=== PATIENT | female | born 1985 | race African-American/Black ===

== ENCOUNTER 2023-10-01 17:58 | Emergency (ER) | payer BC, SELFPAY ==
[2023-10-01 18:16] VITALS: BP 144/73; PULSE 95; RESP 22; TEMP 36.8; O2SAT 99
[2023-10-01 18:25] VITALS: O2SAT 99
[2023-10-01] MEDS: dexAMETHasone SOD PHOS INJ 10 MG/ML 1 ML VIAL 12 MG IM (18:42)
[2023-10-01] MEDS: ALBUTEROL SULFATE NEB 2.5 MG/3 ML INH INHALATION (18:43)
[2023-10-01] MEDS: IPRATROPIUM BR 0.02% INH SOLN 0.5 MG/2.5 ML VIAL INHALATION (18:43)
[2023-10-01 18:59] VITALS: PULSE 103; RESP 24; O2SAT 97
[2023-10-01 19:01] VITALS: PULSE 103; RESP 24; O2SAT 97
--- NOTE | 2023-10-01 19:05 | ED.ASTHMA ---
HPI - Asthma General Chief Complaint: Asthma Stated Complaint: asthma issues,SOB Time Seen by Provider: 10/01/23 18:35 Source: patient and RN notes reviewed Mode of arrival: ambulatory Limitations: no limitations History of Present Illness HPI Narrative: Patient presents today complaining of a a 2 day history of worsening chronic cough due to her asthma. States she developed a severe chronic cough after moving to the area approximately 1 year ago. She has not yet initiated care with a PCP, but occasionally does see one approximately 4 hours away from here. She does have an appointment in November. She has been seen at another urgent care in the area and has prescribed her Breo and albuterol nebulizer treatments and albuterol inhaler, which she has been using. She has recently run out of her [employer] and has not purchased anymore. Last night she was coughing enough to vomit. She has also tried Delsym and Robitussin without relief of her cough. Related Data Home Medications Medication Instructions Recorded Confirmed albuterol sulfate 90 mcg/actuation 2 puff inhalation QID PRN Wheezing 10/01/23 10/01/23 aerosol inhaler fluticasone furoate 200 1 inh inhalation DIRECTED 10/01/23 10/01/23 mcg-vilanterol 25 mcg/dose inhalation powder (Breo Ellipta) Allergies Allergy/AdvReac Type Severity Reaction Status Date / Time No Known Allergies Allergy Verified 10/01/23 18:31 Review of Systems Review of Systems: CONSTITUTIONAL: Denies body aches, fever, chills, or sweats. EYES: Denies visual changes, redness, or discharge. ENT: Denies rhinorrhea, congestion, sore throat, or otalgia. CARDIOVASCULAR: Denies chest pain, palpitations, or edema. RESPIRATORY: Cough, wheezing GASTROINTESTINAL: Denies abdominal pain, nausea, or diarrhea.+ post-tussive vomiting GENITOURINARY: Denies dysuria or hematuria. SKIN: Denies rash, itching, or wounds. MUSCULOSKELETAL: Denies back pain, joint pain, or myalgia. NEUROLOGIC: Denies headache, numbness, tingling, or weakness. PSYCH: Denies depression or anxiety. [facility] Past Medical History Medical History (Updated 10/01/23 @ 19:31 by Ani Chiu, RESEARCH AND EVALUATION MANAGER, ) Asthma Comments At time of signature, I have reviewed and agree with nursing past medical, surgical, social and family history unless otherwise noted. Please see nursing chart for further information. There is no relevant family history pertinent to the presenting complaint Exam Narrative: GENERAL: Well-appearing, well-nourished HEAD: Normocephalic, atraumatic. EYES: EOMI. No redness or drainage. Conjunctivae normal. ENT: Mucous membranes pink and moist. Nares clear. No rhinorrhea. NECK: Normal AROM. Supple. No lymphadenopathy. CHEST: Frequent high-pitched cough. Somewhat decreased aeration, but otherwise clear. Posttussive vomiting. HEART: Regular rate and rhythm. No murmur appreciated. EXTREMITIES: Normal range of motion. No edema. SKIN: Warm, dry, no rash. Capillary refill normal. Normal skin turgor. NEURO: No focal deficits. Alert and oriented x3. Gait steady. PSYCH: Normal affect. No signs of depression or anxiety. Course Course Level of Care: Express Care Visit Vital Signs Vital signs: Vital Signs Temperature 98.3 F 10/01/23 18:16 Pulse Rate 95 10/01/23 18:16 Respiratory Rate 22 H 10/01/23 18:16 Blood Pressure 144/73 H 10/01/23 18:16 Pulse Oximetry 99 10/01/23 18:16 Oxygen Delivery Room Air 10/01/23 18:16 Temperature 98.3 F 10/01/23 18:16 Pulse Rate 93 10/01/23 19:13 Respiratory Rate 20 10/01/23 19:13 Blood Pressure 144/73 H 10/01/23 18:16 Pulse Oximetry 98 10/01/23 19:13 Oxygen Delivery Room Air 10/01/23 19:13 Reviewed MDM - Asthma MDM Narrative Medical decision making narrative: Feeling mildly better after Duoneb. Dexamethasone injection given as well. Refilled Breo. Prescriptions for prednisone and Cheratussin sent. Recommend resta
[2023-10-01 19:13] VITALS: PULSE 93; RESP 20; O2SAT 98
== END 2023-10-01 19:15 | disposition home or self-care (01) ==
PROVIDERS: Emergency Provider Nurse Practitioner
DX: J45.901 Unspecified asthma with (acute) exacerbation (principal)
CPT/HCPCS: 94640; 96372; 99203; G0463; J1100

== ENCOUNTER 2024-03-11 22:04 | Emergency (ER) | payer BC, SELFPAY ==
--- NOTE | ~2024-03-11 | XR_ITS ---
EXAMINATION: XR chest 1V portable DATE: 03/11/2024 22:57 INDICATION: Cough. TECHNIQUE: A single frontal view of the chest was obtained. COMPARISON: None. FINDINGS: There is no pneumonia, pleural effusion, or pneumothorax. Cardiomegaly is noted. Calcified left hilar lymph nodes are consistent with old granulomatous disease. IMPRESSION: 1. Cardiomegaly. Reviewed, dictated and finalized at location A. T MET[employer] SHOP SUPERVISOR IMPRESSION: 1. Cardiomegaly.
[2024-03-11 22:09] VITALS: BP 146/109; PULSE 85; RESP 18; TEMP 37.3; O2SAT 97
[2024-03-11] MEDS: ONDANSETRON HCL ODT 4 MG TABLET PO (22:33)
[2024-03-11] MEDS: ACETAMINOPHEN 500 MG TABLET 1000 MG PO (22:33)
--- NOTE | 2024-03-11 22:53 | ED_ITS ---
HPI - URI/Sore Throat General Chief Complaint: Upper Respiratory Infection Stated Complaint: cough, sore throat, vomiting Time Seen by Provider: 03/11/24 22:22 Source: patient Mode of arrival: ambulatory Limitations: no limitations History of Present Illness HPI Narrative: This is a 39 year old female that presents to the ER for cold symptoms. Present over the last 4 days. Reports cough, congestion, rhinorrhea, sore throat, vomiting. Denies fevers. Related Data Home Medications ?Medication ?Instructions ?Recorded ?Confirmed ?Last Taken ?Type albuterol sulfate 90 mcg/actuation 2 puff inhalation QID PRN Wheezing 10/01/23 10/01/23 Unknown History aerosol inhaler fluticasone furoate 200 1 inh inhalation DIRECTED 10/01/23 10/01/23 Unknown History mcg-vilanterol 25 mcg/dose inhalation powder (Breo Ellipta) Allergies Allergy/AdvReac Type Severity Reaction Status Date / Time No Known Allergies Allergy Verified 03/11/24 22:05 Review of Systems Review of Systems: CONSTITUTIONAL: Denies fever ENT: Reports rhinorrhea, congestion, sore throat RESPIRATORY: Reports cough. Denies dyspnea. GASTROINTESTINAL: Reports vomiting All systems reviewed & are unremarkable except as noted in HPI and below PMFSH Past Medical History Medical History (Updated 03/11/24 @ 23:23 by Jenny Rodriguez PA-C) Asthma Social History Social History (Updated 03/11/24 @ 22:55 by Jenny Rodriguez PA-C) Smoking status: Never smoker Exam Narrative: GENERAL: Well-appearing, well-nourished, and in no acute distress. HEAD: Normocephalic, atraumatic. EYES: EOMI. ENT: Nares clear, no rhinorrhea or epistaxis. Mucous membranes moist. Oropharynx without tonsillar hypertrophy exudate or other lesions. Bilateral TMs pearly gutierrez non-bulging NECK: Supple. No adenopathy or masses. CHEST: Clear to auscultation. No respiratory distress. No wheezes rales or rhonchi HEART: Regular rate and rhythm. No murmur heard. Normal peripheral pulses. EXTREMITIES: Normal range of motion. No edema. SKIN: Warm, dry, no rash. NEURO: No focal deficits. Alert and oriented x3. PSYCH: Normal mood and affect Course Course Emergency Course: patient updated on workup and agrees with plan of care Vital Signs Vital signs: Vital Signs Temperature 99.2 F 03/11/24 22:09 Pulse Rate 85 03/11/24 22:09 Respiratory Rate 18 03/11/24 22:09 Blood Pressure 146/109 H 03/11/24 22:09 Pulse Oximetry 97 03/11/24 22:09 Oxygen Delivery Room Air 03/11/24 22:09 Temperature 99.2 F 03/11/24 22:09 Pulse Rate 85 03/11/24 22:09 Respiratory Rate 18 03/11/24 22:09 Blood Pressure 146/109 H 03/11/24 22:09 Pulse Oximetry 97 03/11/24 22:09 Oxygen Delivery Room Air 03/11/24 22:09 MDM - URI/Sore Throat MDM Narrative Medical decision making narrative: Patient presents to the ER for cold symptoms present over the last 4 days. She is afebrile and nontoxic appearing. Oxygen saturation is normal on room air. Lungs are clear on exam. Chest x-ray without signs of pneumonia. Patient is influenza A positive. Updated on her workup. Agrees with plan of care. She is to follow up with PCP. She was given warnings to return to the ER Differential Diagnosis Differential diagnosis: Likely upper respiratory infection, sinusitis, viral infection, bronchitis, influenza, pharyngitis and other (pneumonia) Lab Data Attestation: I reviewed the patient's lab results. Labs: Lab Results 03/11/24 Range/Units 22:27 Influenza A (RT-PCR) Positive A (Negative) Influenza B (RT-PCR) Negative (Negative) RSV (RT-PCR) Negative (Negative) SARS-CoV-2 RNA (RT-PCR) Negative (Negative) Group A Strep (PCR) Not detected (Negative) Imaging Data Radiologist's impression: ITS Impressions Chest X-Ray 03/11/24 22:58 IMPRESSION: 1. Cardiomegaly. Critical Care Time Critical Care Time Critical Care Time: No Discharge Plan Discharge Clinical Impression: Influenza A Patient Disposition: Home, Self-Care Condition: Stable Instructions: Influenza (ED) Additional Instructions: Return to the emergency department for worsening symptoms, or any other concerns Remain well-hydrated, get plenty of rest. Take Tylenol or Motrin [id number] for pain as needed. Flonase for nasal congestion. Zyrtec for runny nose. Lozenges or Chloraseptic spray for sore throat. Follow up with primary care doctor Patient Language: Belarusian Prescriptions: New prednisone 20 mg tablet 40 mg PO DAILY 4 Days Qty: 8 0RF ondansetron 4 mg tablet,disintegrating 4 mg PO Q8H PRN (Reason: nausea and vomiting) Qty: 10 0RF oseltamivir 75 mg capsule 75 mg PO Q12H 5 Days Qty: 10 0RF No Action albuterol sulfate 90 mcg/actuation HFA aerosol inhaler 2 puff INHALATION QID PRN (Reason: Wheezing) fluticasone furoate-vilanterol [Breo Ellipta] 200-25 mcg/dose blister with device 1 inh INHALATION DIRECTED fluticasone furoate-vilanterol [Breo Ellipta] 200-25 mcg/dose blister with device 1 inh inhalation DAILY Qty: 60 0RF prednisone 50 mg tablet 50 mg PO DAILY 5 Days Qty: 5 0RF codeine-guaifenesin 10-100 mg/5 mL liquid 5 ml PO Q6H PRN (Reason: cough) Qty: 120 0RF Follow-up/Referrals: Rhonda Garcia MD [Physician] - PHYSICIAN,BINGO MANAGER [Primary Care Provider] -
[2024-03-11 22:55] LABS: Strep Group A RT-PCR NOT DETECTED (Negative)
[2024-03-11 23:07] LABS: Influenza A QL RT-PCR Positive (Negative); Influenza B QL RT-PCR Negative (Negative); RSV RNA, RT-PCR Negative (Negative); SARS-CoV-2 RNA PCR Negative (Negative)
[2024-03-11] MEDS: predniSONE 20 MG TABLET 40 MG PO (23:40)
== END 2024-03-11 23:55 | disposition home or self-care (01) ==
PROVIDERS: Emergency Provider Physician Assistant
DX: J10.1 Influenza due to other identified influenza virus with other respiratory manifestations (principal); Z20.822 Contact with and (suspected) exposure to COVID-19; J45.909 Unspecified asthma, uncomplicated
CPT/HCPCS: 71045; 87637; 87651; 99283; A9270; J7512